=== PATIENT | male | born 1955 | race Asian ===

== ENCOUNTER 2016-08-04 09:06 | Day surgery (SDC) | payer BC ==
[~2016-08-04] VITALS: Ht 175.3 cm; Wt 81.2 kg
[2016-08-04 10:31] VITALS: Ht 175.3 cm; Wt 81.2 kg
[2016-08-04] MEDS ORDERED: INHALER (10:38)
[2016-08-04 10:56] VITALS: BP 129/73; PULSE 77; RESP 20
[2016-08-04] MEDS ORDERED: MIDAZOLAM 1 MG/ML 2 ML INJ ONE ×2 (11:42→11:43)
[2016-08-04] MEDS ORDERED: FENTAnyl 50 MCG/ML VIAL ONE (11:43)
[2016-08-04 11:50] VITALS: BP 118/79; PULSE 70; RESP 18
--- NOTE | 2016-08-04 13:01 | GILP ---
DATE OF PROCEDURE: NAME OF PROCEDURE: Colonoscopy. SURGEON: Anna Marie Stanford MD PREOPERATIVE DIAGNOSIS: Screening colonoscopy. POSTOPERATIVE DIAGNOSES 1. Colonoscopy all the way to the cecum. 2. Internal hemorrhoids. 3. No colon neoplasm was identified. INDICATION FOR THE PROCEDURE: Mr. Rm Segura is a 61-year-old male patient who was scheduled f or screening colonoscopy. The procedure and possible complications are well explained to the patient. The patient understood and consented to the procedure. DESCRIPTION OF PROCEDURE: Under the influence of fentanyl and Versed, the colonoscope was carefully introduced in the rectum and under direct vision, it was advanced all the way to the cecum. FINDINGS: The patient had internal hemorrhoids. No colitis or neoplasm was identified. He tolerated the procedure very well and there was no complication from the procedure. At the end o f the procedure, he was awake with stable vital signs and he was discharged home to the care of his family. IMPRESSION: 1. Colonoscopy all the way to the cecum. 2. Internal hemorrhoids. 3. No colon neoplasm was identified. PLAN: Next screening colonoscopy in 10 years. Dictated By: ANNA MARIE RYAN/AMADOU Conf#: [id number] DID#: [id number]
== END 2016-08-04 13:43 | disposition home or self-care (01) ==
LOC: GIL 09:06
PROVIDERS: ATTEND Internal Medicine Gastroenterology
DX: Z12.11 Encounter for screening for malignant neoplasm of colon (principal); K64.8 Other hemorrhoids
CPT/HCPCS: 45378; J2250; J3010